=== PATIENT | male | born 1945 | race African-American/Black ===

== ENCOUNTER 2016-11-30 11:32 | Inpatient (IN) ==
[2016-11-30 12:04] LABS: MANUAL DIFF NEEDED? NO
[2016-11-30 12:05] LABS: BASO% 0.8 % (0.0-0.8); EOS# 0.26 X1000 (0.0-0.7); HEMATOCRIT 35.3 % (42.0-52.0); HEMOGLOBIN 11.5 g/dL (14.0-18.0); IMM GRAN# 0.02 X1000 (0.0-0.04); IMM GRAN% 0.3 % (0.0-0.5); LYMPH% 31.1 % (20.5-51.1); MCH 29.1 PG (27-31); MCHC 32.6 g/dL (33-37); MCV 89.4 FL (81-99); MONO# 0.49 X1000 (0.11-0.59); MONO% 7.6 % (1.7-9.3); MPV 12.6 FL (7.4-10.4); NEUT% 56.2 % (42.2-75.2); PLT 207 X1000 (130-400); RBC 3.95 XMIL (4.7-6.1)
[2016-11-30] MEDS ORDERED: LASIX IV ONE (12:12)
[2016-11-30] MEDS ORDERED: CATAPRES PO ONE ×2 (12:14→15:16)
[2016-11-30] MEDS ORDERED: NITROGLYCERIN SL ONE (12:14)
--- NOTE | 2016-11-30 12:21 | EKG Report ---
Test Performed on : 11/30/2016 12:00:56 PM Test Reason : sob chf Blood Pressure : / mmHG Vent. Rate : 060 BPM Atrial Rate : 060 BPM P-R Int : 194 ms QRS Dur : 140 ms QT Int : 442 ms P-R-T Axes : 020 -25 268 degrees QTc Int : 442 ms Sinus rhythm. with premature supraventricular complexes. Right bundle branch block T wave abnormality, consider inferolateral ischemia Abnormal ECG When compared with ECG of 14-MAY-2015 11:10, premature supraventricular complexes. are now present FL interval has decreased T wave inversion more evident in Lateral leads Unconfirmed Result
--- NOTE | 2016-11-30 12:28 | Diag Imaging Result Doc PS360 ---
EXAM: CHEST-2 VIEWS HISTORY: hx chf sob TECHNIQUE: COMPARISON: 05/14/2015 FINDINGS: The lungs are well expanded. The heart is mildly prominent. There is minimal vascular distention. There are no infiltrates. Questionable tiny effusions. IMPRESSION: Mildly prominent heart with mild pulmonary edema. Electronically signed by Aric Whitaker 11/30/2016 12:25 PM
[2016-11-30 12:29] LABS: ALBUMIN 3.3 g/dL (3.5-5.0); CALCIUM 9.3 mg/dL (8.8-10.2); MAGNESIUM 1.7 mg/dL (1.5-2.7); POTASSIUM 3.5 mmol/L (3.5-5.1); TOTAL BILIRUBIN 0.4 mg/dL (0.20-1.00); TOTAL PROTEIN 5.9 g/dL (6.3-8.3)
[2016-11-30] MEDS ORDERED: MORPHINE IV ONE (15:16)
--- NOTE | 2016-11-30 15:27 | EKG Report ---
Test Performed on : 11/30/2016 3:17:56 PM Test Reason : cp 2nd set Blood Pressure : / mmHG Vent. Rate : 055 BPM Atrial Rate : 055 BPM P-R Int : 180 ms QRS Dur : 156 ms QT Int : 450 ms P-R-T Axes : 011 -24 260 degrees QTc Int : 430 ms Sinus bradycardia. with premature supraventricular complexes. Right bundle branch block T wave abnormality, consider inferolateral ischemia Abnormal ECG When compared with ECG of 30-NOV-2016 12:00, (Unconfirmed) No significant change was found Unconfirmed Result
--- NOTE | 2016-11-30 15:33 | PROVIDER DOCUMENTATION ---
This chart was entered by Brian Nina Scribe, acting as scribe for Luisito Rain PA. HPI-Respiratory General - General Chief Complaint: Shortness of Breath Stated Complaint: COUGH Time Seen by Provider: 11/30/16 12:02 Source: patient, family Allergies/Adverse Reactions: Patient Allergies Allergy/AdvReac Type Severity Reaction Status Date / Time No Known Allergies Allergy Verified 08/12/15 19:14 Home Medications: Home Medication List Medication Instructions Recorded Confirmed Last Taken Type Amlodipine [Norvasc] 10 mg PO DAILY 01/22/14 11/30/16 11/30/16 09:00 History Glipizide 5 mg PO DAILY 01/22/14 11/30/16 11/30/16 09:00 History Lisinopril 40 mg PO DAILY 01/22/14 11/30/16 11/30/16 09:00 History Metformin [Glucophage] 500 mg PO BID 01/22/14 11/30/16 11/30/16 09:00 History Potassium Chloride 10 meq PO DAILY 01/22/14 11/30/16 11/30/16 09:00 History 10 meq Tamsulosin [Flomax] 0.4 mg PO DAILY 01/22/14 11/30/16 11/30/16 History 0.4mg ATORVAstatin [Lipitor] 40 mg PO DAILY #0 01/25/14 11/30/16 11/30/16 09:00 Rx Spironolactone/Hctz [Aldactazide 1 each PO DAILY #0 tablet 01/25/14 11/30/16 Rx 25/25] 1 tab Carvedilol [Coreg] 3.125 mg PO BID #60 tablet 05/17/15 11/30/16 11/30/16 09:00 Rx Furosemide [Lasix] 40 mg PO DAILY 11/30/16 11/30/16 11/30/16 09:00 History - History of Present Illness-Resp Nature of Presenting Problem: Pt is a 71 yom that presents to er with cc of increased sob x 2 days. Pt reports he has chf and takes lasix 3pills a day. Denies cp,n,v,increased fluid build up. Severity in ED: reports: mild Onset/Duration: reports: 2 days ago Timing: reports: still present Cough Quality/Degree: reports: mild Episode Frequency: occasional episodes Current Respiratory Medication Therapy: Initiated see nurses note Modifying Factors: improves with: exertion Similar Symptoms Previously?: Yes Recently seen or treated by another doctor?: No Review of Systems - Adult - REVIEW OF SYSTEMS - ADULT Constitutional: denies: chills, fever, fatique Eyes: reports: no symptoms reported Ears, Nose, Mouth & Throat: reports: no symptoms reported Cardiovascular: denies: chest pain, irregular heart rate, orthopnea, syncope Respiratory: reports: see HPI, cough, dyspnea on exertion, shortness of breath. denies: chronic cough, excessive sputum production, hemoptysis, pleurisy, wheezing Gastrointestinal: reports: no symptoms reported Genitourinary: reports: no symptoms reported Musculoskeletal: reports: no symptoms reported Integumentary: reports: no symptoms reported Neurological: reports: no symptoms reported Psychiatric: reports: no symptoms reported Endocrine: reports: no symptoms reported Hematologic/Lymphatic: reports: no symptoms reported Allergic/Immunologic: reports: no symptoms reported All Other Systems: Reviewed and Negative Past History - Adult - PAST MEDICAL HISTORY-ADULT Review of Records: reports: Nursing Assessment Review, Medications Reviewed Major Childhood Illnesses: reports: denies history Cardiovascular: reports: CAD, HTN, hyperlipidemia Respiratory: reports: denies history Gastrointestinal: reports: denies history Obstetrical/Gynecological: reports: denies history Genitourinary: reports: denies history Musculoskeletal: reports: denies history Neurological: reports: CVA Endocrine/Immune: reports: denies history Other Conditions: reports: denies history - PRIOR SURGERIES/PROCEDURES Surgical/Procedure History: reports: none - PRIOR HOSPITALIZATIONS Prior Hospitalizations: reports: none - IMMUNIZATION STATUS Childhood Immunizations: See Nurse Assessment Flu Vaccine: See Nurse Assessment - FAMILY HISTORY Family History: reviewed, not pertinent - SOCIAL HISTORY Smoking: denies Substance Use: none/never Physical Exam-General - PHYSICAL EXAM-ADULT Initial Vital Signs Reviewed: Yes (Pt Blood pressure upon evaluation was 159/ 108 after retake was 166/119) - CONSTITUTIONAL General Appearance: appears well, alert, mild distress, obese - EYES Eyes: PERRL/EOMI, pink conjunctivae. negative: sclera injected, scleral icterus - HEAD, EARS, NOSE, MOUTH & THROAT HENMT: moist mucous membranes, normal ENT inspection, pharynx normal. negative : angioedema - NECK Neck: non-tender, full range of motion, supple, normal inspection - RESPIRATORY Respiratory: chest non-tender, lungs clear, normal breath sounds, no pleuratic chest pain, no respiratory distress, no accessory muscle use, other (o2 sat 95%) . negative: crackles, rales, rhonchi, stridor, wheezing - CARDIOVASCULAR Cardiovascular: normal peripheral pulses, regular rate, rhythm - GASTROINTESTINAL (ABDOMEN) Abdominal Exam: non tender, soft, no organomegaly, no pulsatile mass, other ( large abdomen but no fluid shift). 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, grossly normal - PSYCHIATRIC Psych/Mental Status: normal mood/affect, normal thought content, normal thought process, oriented x 3 Progress - PLAN OF CARE/RESULTS Progress/Plan/Lab Results: Laboratory Results - last 24 hr 11/30/16 11/30/16 11/30/16 12:00 12:00 12:00 WBC RBC Hgb Hct MCV MCH MCHC RDW Std Deviation Plt Count MPV Immature Gran % (Auto) Neut % (Auto) Lymph % (Auto) Tillman % (Auto) Eos % (Auto) Baso % (Auto) Immature Gran # (Auto) Neut # (Auto) Lymph # (Auto) Tillman # (Auto) Eos # (Auto) Baso # (Auto) D-Dimer Sodium 141 Potassium 3.5 Chloride 106 Carbon Dioxide 28 Anion Gap 7 BUN 15 Creatinine 1.2 Estimated GFR/1.73 m2 60 BUN/Creatinine Ratio 13 Glucose 147 H Calculated Osmolality 285 Calcium 9.3 Magnesium 1.7 Total Bilirubin 0.40 AST 16 ALT 23 Alkaline Phosphatase 57 Creatine Kinase 100 Troponin T 0.029 [id number] Pept 6369 H Total Protein 5.9 L Albumin 3.3 L Globulin 3.0 Albumin/Globulin Ratio 1.0 11/30/16 11/30/16 12:00 12:00 WBC 6.44 RBC 3.95 L Hgb 11.5 L Hct 35.3 L MCV 89.4 MCH 29.1 MCHC 32.6 L RDW Std Deviation 13.3 Plt Count 207 MPV 12.6 H Immature Gran % (Auto) 0.3 Neut % (Auto) 56.2 Lymph % (Auto) 31.1 Tillman % (Auto) 7.6 Eos % (Auto) 4.0 Baso % (Auto) 0.8 Immature Gran # (Auto) 0.02 Neut # (Auto) 3.62 Lymph # (Auto) 2.00 Tillman # (Auto) 0.49 Eos # (Auto) 0.26 Baso # (Auto) 0.05 D-Dimer 0.40 Sodium Potassium Chloride Carbon Dioxide Anion Gap BUN Creatinine Estimated GFR/1.73 m2 BUN/Creatinine Ratio Glucose Calculated Osmolality Calcium Magnesium Total Bilirubin AST ALT Alkaline Phosphatase Creatine Kinase Troponin T [id number] Pept Total Protein Albumin Globulin Albumin/Globulin Ratio Orders Category Date Time Status Admit - [facility] Routine AdmDCTranf 11/30/16 15:33 Ordered Cardiac Monitoring DIRECTED Care 11/30/16 11:45 Completed Nursing- Obtain EKG once Care 11/30/16 11:45 Completed Oxygen Therapy- ED Nursing DIRECTED Care 11/30/16 11:46 Completed CHEST-2 VIEWS [RAD] Stat Exams 11/30/16 11:45 Completed CBC WITH DIFF [HEME] Stat Lab 11/30/16 12:00 Completed CK PROFILE [SP CHEM] Stat Lab 11/30/16 12:00 Completed COMPREHENSIVE METABOLIC PANEL [CHEM] Stat Lab 11/30/16 12:[address] D-DIMER PL [COAG] Stat Lab 11/30/16 12:00 Completed MAGNESIUM [CHEM] Stat Lab 11/30/16 12:00 Completed PRO B-NATRIURETIC PEPTIDE Stat Lab 11/30/16 12:00 Completed TROPONIN T Stat Lab 11/30/16 12:00 Completed Clonidine [Catapres] Med 11/30/16 12:14 Discontinued 0.1 mg PO NOW ONE Clonidine [Catapres] Med 11/30/16 15:16 Discontinued 0.1 mg PO NOW ONE Furosemide [Lasix] Med 11/30/16 12:12 Discontinued 40 mg IV NOW ONE Morphine Med 11/30/16 15:16 Discontinued 4 mg IV NOW ONE Nitroglycerin Sl [Nitroglycerin] Med 11/30/16 12:14 Discontinued 0.4 mg SL NOW ONE EKG [EKG] Stat Ther 11/30/16 11:45 Draft EKG [EKG] Stat Ther 11/30/16 15:09 Draft Transfer/Admit Order [TRANSFER] Routine Transfer 11/30/16 15:34 Completed Result Diagrams: 12/01/16 05:50 12/01/16 05:50 - REASSESSMENT Reassessment #1 Time Reassessed: 15:25 (Discussed admission with Dr. Thomas. Pt still having difficulty breathing, but concerned with giving morphine or Ativan as his HR is in the high 50s/60 bpm. ) - EKG 1 Time of EKG reading by physician:: 12:00 EKG Read and Signed by:: Cristian George EKG Interpretation (*Must complete 3 of following elements*): Abnormal (t wave abnormality consider inferlateral ischemia) Rate: 60 Rhythm: sinus with premature supravent complexes [place]: normal QRS: RBB, PVC's - XRAY 1 XRAY: Bilateral XRAY Study: Chest Impression: Abnormal (mild prominent heart with mild pulmonary edema.) - CONSULTS/PCP/HOSPITALIST Notification #1 *Consult/PCP/Hospitalist*: Dr. Thomas Time Discussed: 15:25 (For CHF exacerbation) Consult Disposition: Admit Departure - Departure Date of Disposition Decision: 11/30/16 Time of Disposition Decision: 15:32 DIAGNOSIS: CHF exacerbation Qualifiers: Congestive heart failure type: unspecified congestive heart failure type Qualified Code(s): I50.9 - Heart failure, unspecified Disposition: ADMITTED INPATIENT 09 Certified Medical Emergency: Emergent Condition: Stable - Critical Care Note This patient required my direct & personal management of CC.: No Attestation - Physician/ ISREAL Attestation Patient care was provided by Advanced Practice Provider:: Yes Advanced Practice Provider:: Luisito Rain Advanced Practice Provider documentation review:: The Mid-level provider documentation, treatment plan and medical decision making was reviewed by the physician who agrees with all treatment and medical decision making by the MLP. This chart was documented by the indicated scribe, (Biran Nina Scribe) and accurately reflects the services I performed and decisions made by me, Luisito Rain PA, as attested by the provider's signature.
[2016-11-30] MEDS ORDERED: ZOFRAN IV PRN (19:32)
[2016-11-30] MEDS: GLUCOPHAGE PO SCH (20:36)
[2016-11-30] MEDS: COREG PO SCH (20:36)
[2016-11-30] MEDS: LASIX IV SCH (20:36)
[2016-11-30] MEDS: HUMULIN R (PARKWAY) SUBQ SCH (20:38)
--- NOTE | 2016-11-30 20:39 | HISTORY AND PHYSICAL ---
CHIEF COMPLAINT: Increasing shortness of breath and lower extremity edema x2 days. HISTORY OF PRESENT ILLNESS: This is a 71-year-old morbidly obese gentleman with a history of systolic heart failure, dilated and hypertrophic cardiomyopathy, hypertension, diabetes mellitus, who presents to the emergency room complaining of increasing shortness of breath and lower extremity edema over the last 48 hours. He does state that his shortness and breath is on exertion. It will decrease somewhat with rest. He denied any chest pain, palpitations, fever or chills. Chest x-ray revealed a mildly prominent heart with pulmonary edema. He was given Lasix IV as well as clonidine in the emergency room, and he is being admitted for further evaluation and treatment. PAST MEDICAL HISTORY: 1. Systolic heart failure with EF of 50% in May 2015. Dilated and hypertrophic cardiomyopathy. 2. Hypertension. 3. Diabetes type 2. 4. History of TIA. 5. Sleep apnea. PAST SURGICAL HISTORY: Hemorrhoidectomy. SOCIAL HISTORY: He denies tobacco or illicit drug use. He does have occasional alcohol. ALLERGIES: No known drug allergies. HOME MEDICATIONS: Spironolactone/hydrochlorothiazide 1 daily. Lasix 40 mg daily although the patient states he takes 3 a day. Norvasc 10 mg daily. Lipitor 40 mg daily. Coreg 3.125 b.i.d. Glipizide 5 mg daily. Lisinopril 40 daily. Potassium chloride 10 mEq daily. Glucophage 500 b.i.d. Flomax 0.4 daily. REVIEW OF SYSTEMS: A 14 point review of systems is discussed with the patient with pertinent positives stated in HPI. He denied chest pain, palpitations, dizziness, syncope, orthopnea, PND, any nausea, vomiting, diarrhea, constipation, black or bloody vomitus, black or bloody stools, hematuria, dysuria, frequency, urgency. PHYSICAL EXAMINATION: GENERAL: This is a morbidly obese, 71-year-old gentleman who is sitting in the bed with no distress. VITAL SIGNS: Blood pressure is 155/87, heart rate of 59, respirations are 18, temperature is 97.6 degrees with O2 saturations of 96-98% on 2 L nasal cannula. HEENT: Head is normocephalic, atraumatic. Pupils equal, round, react to light. EOMs are intact. Sclerae anicteric. Mucous membranes are moist. NECK: Supple with trachea midline. CARDIOVASCULAR: Regular rate and rhythm. S1 and S2 appreciated. PULMONARY: Breath sounds are diminished, probably due to body habitus. Chest rises and falls symmetrically with respiration. No increased work of breathing noted. GASTROINTESTINAL: Abdomen is large, soft, nontender, nondistended with bowel sounds in all 4 quadrants. MUSCULOSKELETAL: Good range of motion of joints. EXTREMITIES: No clubbing, cyanosis. He does have bilateral pedal edema about 1+. Pulses are palpable x4. SKIN: Warm and dry with no rashes or lesions noted. NEUROLOGIC: He is alert and oriented x3. Cranial nerves 2-12 grossly intact. LABORATORY/DIAGNOSTICS: WBC is 6.4 with hemoglobin 11.5, hematocrit 35.3, and platelets of 207,000. D-dimer is 0.40. Sodium is 141, potassium 3.5, BUN 15, creatinine 1.2 with a glucose of 147. ProBNP is 6369. Troponin is negative. Chest x-ray revealed cardiomegaly and pulmonary edema. EKG revealed sinus rhythm at a rate of 55. ASSESSMENT AND PLAN: 1. Chronic heart failure exacerbation. He did have an echocardiogram in May 2015 which revealed EF of 50% with grade 1 diastolic dysfunction. We will repeat an echocardiogram. We will give IV Lasix. I did advise home medicines and continue as appropriate. 2. Diabetes type 2. He will be placed on pattern blood glucose with sliding scale insulin. We will check hemoglobin A1c. 3. Hypertension. We will continue his medications and follow. 4. Bilateral lower extremity edema. We will encourage him to elevate his feet, give Lasix and follow up. 5. DVT prophylaxis. We will use Lovenox and GI prophylaxis, Prilosec. Further treatments pending hospital course. Dictated by LATRICIA Dean for Adonay Thomas MD cc: LATRICIA Dean MD
[2016-11-30] MEDS ORDERED: LACTULOSE PO SCH (21:00)
[2016-12-01] MEDS: PRILOSEC PO SCH (06:04)
[2016-12-01] MEDS: HUMULIN R (PARKWAY) SUBQ SCH ×4 (06:04→21:28)
[2016-12-01 06:35] LABS: HEMATOCRIT 34.9 % (42.0-52.0); MCH 28.6 PG (27-31); MCHC 31.5 g/dL (33-37); MCV 90.9 FL (81-99); RBC 3.84 XMIL (4.7-6.1)
[2016-12-01 06:51] LABS: ALBUMIN 3.2 g/dL (3.5-5.0); MAGNESIUM 1.7 mg/dL (1.5-2.7); TOTAL BILIRUBIN 0.4 mg/dL (0.20-1.00); TOTAL PROTEIN 5.7 g/dL (6.3-8.3)
[2016-12-01 07:01] LABS: HEMOGLOBIN A1C 5.1 % (4.8-6.0)
[2016-12-01] MEDS: LOVENOX SUBQ SCH (08:44)
[2016-12-01] MEDS: LASIX IV SCH ×2 (08:44→19:59)
[2016-12-01] MEDS: ALDACTONE PO SCH (08:45)
[2016-12-01] MEDS: LIPITOR PO SCH (08:45)
[2016-12-01] MEDS: GLUCOPHAGE PO SCH ×2 (08:45→19:59)
[2016-12-01] MEDS: COREG PO SCH ×2 (08:45→19:59)
[2016-12-01] MEDS: GLUCOTROL PO SCH (08:45)
[2016-12-01] MEDS: HYDROCHLOROTHIAZIDE PO SCH (08:45)
[2016-12-01] MEDS: PRINIVIL PO SCH (08:45)
[2016-12-01] MEDS: NORVASC PO SCH (08:45)
[2016-12-01] MEDS: FLOMAX PO SCH (09:29)
[2016-12-01] MEDS ORDERED: KLOR-CON PO ONE (12:33)
--- NOTE | 2016-12-01 14:32 | PROGRESS NOTE ---
DATE: 12/01/2016 SUBJECTIVE: The patient is sitting in the bed in no distress. He does feel a little better today. He denies chest pain, GI or issues. OBJECTIVE: Vital Signs: Blood pressure is 151/80 with a heart rate of 64, respirations are 18, temperature is 97.8 degrees with O2 saturations of 95-97% on room air. General: This is a 71- year-old male who is sitting up in the bed, in no distress. Cardiovascular: Regular rate and rhythm, S1, S2 appreciated. Pulmonary: Breath sounds are diminished throughout with no increased work of breathing noted. Gastrointestinal: Abdomen is soft, nontender, nondistended. Bowel sounds in all 4 quadrants. Extremities: No clubbing or cyanosis. No edema to the upper extremities. Bilateral lower extremities have 2+ pitting edema up to the knee. Neurologic: He is alert and oriented x3 with cranial nerves 2-12 grossly intact. LABORATORY: WBC is 6.13, with hemoglobin 11, hematocrit 34.9, and platelets of 205,000. Sodium is 144, potassium 3, BUN 14, creatinine 1.2 with blood sugars ranging from 62-113. He does have a hemoglobin A1c of 5.1. ASSESSMENT: This is a 71-year-old morbidly obese male who is sitting up on the side of the bed in no distress. 1. Chronic heart failure exacerbation. We will continue with IV diuresis. His input and output status is -400 since admission. We will obtain echocardiogram and continue his current regimen. 2. Diabetes type 2. We will continue pattern blood glucose with sliding scale insulin. 3. Hypertension. We will continue his current regimen. 4. Bilateral lower extremity edema. We will continue with Lasix and encouraged him to keep his feet elevated. 5. Hypokalemia. We will replete and trend labs. 6. DVT prophylaxis. Lovenox. 7. Gastrointestinal prophylaxis. Prilosec. Dictated by LATRICIA Dean for Adonay Thomas MD cc: LATRICIA Dean MD
[2016-12-01] MEDS ORDERED: DUONEB (A & A) INH PRN (17:03)
--- NOTE | 2016-12-01 19:24 | ECHO REPORT ---
ORDER DATE: 12/01/2016 MEASUREMENTS: Left ventricular end-diastolic diameter 7.1. Systolic diameter 5.1, posterior wall thickness 1.2, septal thickness 1.4, left atrium 5.1, aortic root 3.7. SUMMARY: 1. Fair quality study. 2. Aortic valve is trileaflet and opens normally on 2-dimensional images. There is very mild aortic regurgitation. Mitral, tricuspid, and pulmonic valves are without structural abnormality with mild mitral regurgitation. Mild tricuspid regurgitation and mild pulmonic insufficiency. The estimated systolic PA pressure by Doppler is 55 mmHg. The aortic root is normal in size. 3. Moderate left ventricular enlargement with mild concentric left hypertrophy is suggested. Estimated left ventricular ejection fraction is 35 to 40% in the setting of mild global hypokinesis, moderate hypokinesis of basal and mid inferior wall, and moderate to severe hypokinesis of basal and mid inferolateral region. Left atrium is moderately enlarged. Right atrium and right ventricle are normal in size with normal right ventricular systolic function. 4. No pericardial effusion. 5. Appearance of inferior vena cava suggests normal central venous pressure. cc: MD Nicki Merchant CRNP
[2016-12-01] MEDS: RESTORIL PO PRN (21:42)
[2016-12-02] MEDS: PRILOSEC PO SCH (06:02)
[2016-12-02 06:04] LABS: HEMATOCRIT 35.4 % (42.0-52.0); HEMOGLOBIN 11.1 g/dL (14.0-18.0); MCH 28.6 PG (27-31); MCHC 31.4 g/dL (33-37); MCV 91.2 FL (81-99); MPV 12.8 FL (7.4-10.4); RBC 3.88 XMIL (4.7-6.1)
[2016-12-02] MEDS: HUMULIN R (PARKWAY) SUBQ SCH ×4 (06:17→21:22)
[2016-12-02 06:21] LABS: AGAP 9; BUN 13 mg/dL (8-22); CALCIUM 8.8 mg/dL (8.8-10.2); CHLORIDE 102 mmol/L (98-107); COSMO 284; POTASSIUM 2.7 mmol/L (3.5-5.1); SODIUM 143 mmol/L (136-145); TCO2 32 mmol/L (25-35)
[2016-12-02] MEDS: HYDROCHLOROTHIAZIDE PO SCH (08:01)
[2016-12-02] MEDS: FLOMAX PO SCH (08:01)
[2016-12-02] MEDS: LIPITOR PO SCH (08:01)
[2016-12-02] MEDS: PRINIVIL PO SCH (08:01)
[2016-12-02] MEDS: NORVASC PO SCH (08:01)
[2016-12-02] MEDS: LASIX IV SCH (08:01)
[2016-12-02] MEDS: LOVENOX SUBQ SCH (08:01)
[2016-12-02] MEDS: GLUCOPHAGE PO SCH ×2 (08:01→21:20)
[2016-12-02] MEDS: COREG PO SCH ×2 (08:02→21:20)
[2016-12-02] MEDS: ALDACTONE PO SCH (08:02)
[2016-12-02] MEDS: GLUCOTROL PO SCH (08:02)
[2016-12-02] MEDS: KLOR-CON PO SCH ×2 (12:44→21:20)
[2016-12-02] MEDS ORDERED: LASIX PO SCH ×2 (21:00)
[2016-12-02] MEDS: RESTORIL PO PRN (21:20)
[2016-12-03] MEDS: HUMULIN R (PARKWAY) SUBQ SCH ×2 (06:31→11:01)
[2016-12-03] MEDS: PRILOSEC PO SCH (06:39)
[2016-12-03 06:44] LABS: HEMATOCRIT 36.1 % (42.0-52.0); HEMOGLOBIN 11.4 g/dL (14.0-18.0); MCH 28.7 PG (27-31); MCHC 31.6 g/dL (33-37); MCV 90.9 FL (81-99); RBC 3.97 XMIL (4.7-6.1)
[2016-12-03 07:13] LABS: FREE T4 1.18 ng/dL (0.93-1.70)
[2016-12-03 07:19] LABS: AGAP 7; ALBUMIN 3.2 g/dL (3.5-5.0); ALKALINE PHOSPHATASE 53 U/L (32-122); BUN 10 mg/dL (8-22); CHLORIDE 100 mmol/L (98-107); COSMO 282; GOT 14 U/L (10-34); GPT 20 U/L (10-44); POTASSIUM 2.9 mmol/L (3.5-5.1); SODIUM 142 mmol/L (136-145); TCO2 35 mmol/L (25-35); TOTAL PROTEIN 5.6 g/dL (6.3-8.3)
[2016-12-03] MEDS ORDERED: LASIX PO SCH (07:30)
[2016-12-03] MEDS: FLOMAX PO SCH (10:57)
[2016-12-03] MEDS: NORVASC PO SCH (10:58)
[2016-12-03] MEDS: HYDROCHLOROTHIAZIDE PO SCH (10:58)
[2016-12-03] MEDS: ALDACTONE PO SCH (10:58)
[2016-12-03] MEDS: GLUCOTROL PO SCH (10:58)
[2016-12-03] MEDS: LIPITOR PO SCH (10:58)
[2016-12-03] MEDS: COREG PO SCH (10:58)
[2016-12-03] MEDS: GLUCOPHAGE PO SCH (10:58)
[2016-12-03] MEDS: KLOR-CON PO SCH (10:59)
[2016-12-03] MEDS: PRINIVIL PO SCH (10:59)
[2016-12-03] MEDS: LOVENOX SUBQ SCH (11:00)
[2016-12-03 11:40] VITALS: BP 146/80
--- NOTE | 2016-12-03 18:25 | DISCHARGE SUMMARY ---
ADMISSION DATE: 11/30/2016 DISCHARGE DATE: 12/03/2016 DIAGNOSES: 1. Systolic heart failure with ejection fraction of 50% in May 2015. 2. Dilated and hypertrophic cardiomyopathy. 3. Hypertension. 4. Diabetes mellitus type 2. 5. Lower extremity edema, resolved. DIAGNOSTICS: Echocardiogram revealed an EF of 35 to 40% with global hypokinesis. HOSPITAL COURSE: Mr. Wells presented to the emergency room complaining of increasing shortness of breath and lower extremity edema x2 days. Of note, he had recently traveled from [place] to [place]. He was diuresed and is current -4 L. He denies any shortness of breath at rest. He states he is at his normal dyspnea on exertion with activity. He is able to lie flat and breathe, although he does not for comfort. We continued his home medications. We did follow his potassium and replete as appropriate. Today he has no lower extremity edema. He has no complaints. DISCHARGE PHYSICAL EXAMINATION: Cardiovascular: Regular rate and rhythm. S1 and S2 appreciated. Pulmonary: Breath sounds are clear with no increased work of breathing noted. Gastrointestinal: Abdomen is large, soft, nontender, nondistended. Bowel sounds in all 4 quadrants. Extremities: No clubbing, cyanosis, or edema. Calves are nontender. Pulses are palpable x4. Neurologic: He is alert and oriented x3. Cranial nerves 2 through 12 grossly intact. DISCHARGE MEDICATIONS: Aldactazide 25/25 daily, Lasix 40 mg daily, Norvasc 10 mg daily, Coreg 3.125 b.i.d., glipizide 5 mg daily, lisinopril 40 daily, potassium chloride 10 mEq daily, Glucophage 500 mg b.i.d., Flomax 0.4 daily. DISCHARGE VITAL SIGNS: Blood pressure is 149/80, with a heart rate of 61, respirations 18, temperature 97.5 degrees with room air saturations of 96 to 98%. DISCHARGE ACTIVITY: As tolerated. DISCHARGE DIET: Healthy heart with sodium restriction as prehospitalization. 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 He needs to call them when he gets home, update on events, and follow up with their recommendations. He was instructed to return to the closest emergency room for any increase in shortness of breath, dyspnea on exertion, orthopnea, chest pain, palpitations, syncope, dizziness, or any questions or concerns that he may have. He is being discharged home in stable condition with family members. TIME SPENT: This is a greater than 30 minute discharge. Dictated by LATRICIA Dean for Adonay Tohmas MD cc: LATRICIA Dean MD
--- NOTE | 2016-12-09 19:34 | PROGRESS NOTE ---
DATE: 12/02/2016 SUBJECTIVE: Patient is doing okay. He is sitting in the bed. He is in no respiratory distress. OBJECTIVE: Vital Signs: Reviewed. He is afebrile. Blood pressure is 145-155 systolic, heart rates in the mid 60s, respiratory 20\. General: Patient is awake, alert. He is currently in no real respiratory distress. Pleasant to talk with. Neck: Supple. CV: Regular rate. Chest: Clear. Abdomen: Soft. EXTREMITIES: Bilateral extremities have 2+ pitting edema up to the knee slightly improved.Neuro: He is awake, alert, oriented. ASSESSMENT: 1. Chronic diastolic heart failure. 2. Diabetes type 2. 3. Hypertension. 4. Bilateral lower extremity edema. 5. Hypokalemia. PLAN: Will continue IV Lasix for diuresis. Will continue to monitor his input and output. Further orders as needed. cc: Adonay Thomas MD
== END 2016-12-03 12:05 | disposition home or self-care (01) ==
LOC: P.ED 11:32 → P.MEDSURG 15:54
PROVIDERS: ATTEND Family Medicine